=== PATIENT | female | born 1990 | race Caucasian/White ===

== ENCOUNTER → 2019-08-10 17:01 | Outpatient (CLI) | payer MEDICAID, SELFPAY ==
[2019-08-10 09:46] VITALS: BMI 33.9
[2019-08-15 15:37] LABS: HPV Reflexed? NOT INDICATED
== END ==
PROVIDERS: Referring Provider Nurse Practitioner Women's Health; Visit Provider Nurse Practitioner Women's Health
DX: Z12.4 Encounter for screening for malignant neoplasm of cervix (principal)
CPT/HCPCS: 88175; G0145

== ENCOUNTER 2019-12-30 18:06 | Emergency (ER) | payer MEDICAID, SELFPAY ==
[2019-08-10 09:46] VITALS: BMI 33.9
[2019-12-30 18:09] VITALS: BP 132/98; PULSE 109; RESP 16; TEMP 36.6; O2SAT 99; BMI 32.3
--- NOTE | 2019-12-30 18:42 | NURSING ---
per dr vail he does not feel patient is actively suicidal and is not needing a sitter at this time
--- NOTE | 2019-12-30 18:44 | ED.DCSUM_ITS ---
History of Present Illness Chief Complaint: Suicidal Informant: Patient, - - police Onset: Today Context: Sudden Onset Conflict: - - see below Timing: Continuous Current Severity: Mild Maximum Severity: Severe Worsened by: Situational factors Associated Symptoms: Suicidal Thoughts. Negative for: Threatening, Confusion, Paranoia, Visual Hallucinations, Auditory Hallucinations Specific plan (suicidal thought): none; denies suicidality at this time Narrative: Patient states she was having a disagreement with her boyfriend yesterday. Today they were trying to work things out by taking a break from each other. She lives with him and his family. She was going to take a bag of her stuff and live somewhere else for couple days. However, the boyfriend's brother and his significant other show up to help her remove all of her stuff out, which surprised her and created more tension and anxiety. Arguments ensued. As a result, she threatened suicide at one point, threatened to shoot herself, and 1 so far as to grab a shotgun which her boyfriend and his brother then took from her. They called the police, who then brought her here under pink slip. Patient states this was all misunderstanding, she regrets doing that, she has had suicidal thoughts in the past and sees a therapist as well as counselor separately. She is on Effexor for depression and anxiety. She denies any drug use, alcohol use today. She denies any recent illness. She denies being warren cidal. - Past Medical History (1) Anxiety and depression Status: Chronic Past Medical History - Allergies and Home Meds Allergies/Adverse Reactions: Allergies No Known Allergies Allergy (Verified 12/30/19 18:12) Primary Care Physician: [facility] Doctor,Out of [NON-STAFF] - Lives: Spouse/ Significant Other Smoking Status: Never smoker Review of Systems General: Denies: Chills, Fever, Sweats Eyes: Denies: Visual changes - bilaterally, Diplopia ENT: Denies: Rhinorrhea, Sore throat Cardiovascular: Denies: Chest pain, Palpitations Respiratory: Denies: Dyspnea, Cough, Dyspnea on exertion Gastrointestinal: Denies: Abdominal pain, Nausea, Vomiting, Diarrhea, Melena, Hematochezia Genitourinary: Denies: Dysuria, Hematuria, Frequency Musculoskeletal: Denies: Back pain, Extremity Pain Skin: Denies: Rash, Wounds Neurological: Denies: Headache, Weakness, Numbness Psych: Reports: Anxiety, Suicidal thoughts. Denies: Suicidal ideations Physical Exam Vital Signs/Narrative: Vital Signs Temp Pulse Resp BP Pulse Ox 12/30/19 18:09 97.9 F 109 H 16 132/98 H 99 Inital Vital Signs reviewed: Yes General: Well nourished, Well developed, - - nad Head: Normocephalic, Atraumatic Eyes: Perrl, EOMI ENT: Moist mucous membranes, No rhinorrhea Neck: Supple, Nontender Cardiovascular: Regular rate, Regular rhythm, No murmurs Respiratory: No distress, CTA bilaterally, Chest nontender Abdomen: Soft, Nontender, Nondistended, Normal bowel sounds Back: Nontender, Normal Inspection Extremities: Nontender, No Edema Skin: Normal color, No rash Neurological: Alert, Oriented x3, Cranial nerves II-XII grossly intact, Normal Strength, Normal Sensation Psych: Normal Speech Pattern, Logical sequential goal directed thoughts, No suicidal or homicidal ideation, Normal Stable Appropriate Affect, Good Insight, Normal Appearance, Limited Judgement. Negative for: Pressured Speech, Poverty of Speech, Flight of Ideas, Incoherent thoughts, Paranoid Ideation Diagnostic/Tx/Re-eval Laboratory Tests 12/30/19 Range/Units 18:33 Urine Opiates Screen NEGATIVE (< 300 ng/mL) Urine Methadone Screen NEGATIVE (< 300 ng/mL) Ur Barbiturates Screen NEGATIVE (< 200 ng/mL) Ur Phencyclidine Scrn NEGATIVE (< 25 ng/mL) Ur Amphetamines Screen NEGATIVE (<1000 ng/mL) U Methamphetamin-MDMA NEGATIVE (< 500 ng/mL) U Benzodiazepines Scrn NEGATIVE (< 200 ng/mL) Urine Cocaine Screen NEGATIVE (< 300 ng/mL) U Cannabinoids Screen NEGATIVE (< 50 ng/mL) Ur Drug Screen Comment Patient does not appear intoxicated and is conversive in full sentences. Urine drug screen was sent. She is medically cleared. Requested that crisis help to evaluate, which they did. They agree with me that the patient can follow-up and be discharged with a safety plan. The patient was able to come up with a plan for where she is going to go and what she is going to do if she is discharged here, she plans on having her boyfriend pick her up so she can get her stuff and go stay with her family. She states she is on good terms with her boyfriend at this time. I and parks and recreation worker think that is reasonable. Safety plan discussed with patient and she contracts for safety. ED Disposition - Plan for ED Patient: Disposition: Home or Assisted Living Diagnosis: Acute reaction to situational stress, Suicidal thoughts Instructions: ED Stress React, ED Depression Referrals: [facility],Out of [NON-STAFF] - (Your counselor, after the weekend)
--- NOTE | 2019-12-30 18:45 | ED.RN ---
CALLED CRISIS TO SEE THIS PT
--- NOTE | 2019-12-30 19:03 | ED.RN ---
MARIBEL CALLED BACK, CALL GIVEN TO KRISHNA
[2019-12-30 19:11] VITALS: RESP 14
[2019-12-30 19:13] LABS: Amphetamine Urine VISTA NEGATIVE (<1000 ng/mL); Barbiturate Urine VISTA NEGATIVE (< 200 ng/mL); Benzodiazepine Urine VISTA NEGATIVE (< 200 ng/mL); Cocaine Urine VISTA NEGATIVE (< 300 ng/mL); Ecstacy Urine VISTA NEGATIVE (< 500 ng/mL); Methadone Urine VISTA NEGATIVE (< 300 ng/mL); PCP Urine VISTA NEGATIVE (< 25 ng/mL); THC Urine VISTA NEGATIVE (< 50 ng/mL); Vista UDS pH Range 7
[2019-12-30 20:01] VITALS: RESP 15
[2019-12-30 20:37] VITALS: RESP 16
== END 2019-12-30 20:38 | disposition home or self-care (01) ==
PROVIDERS: Emergency Provider Emergency Medicine
DX: F43.0 Acute stress reaction (principal); R45.851 Suicidal ideations; F32.9 Major depressive disorder, single episode, unspecified; F41.9 Anxiety disorder, unspecified
CPT/HCPCS: 80307; 99283

== ENCOUNTER → 2020-12-08 | Outpatient (CLI) | payer MEDICAID, SELFPAY ==
[2020-12-08 08:55] VITALS: BMI 32.9
[2020-12-09 20:07] LABS: Chlamydia By Nucleic Acid AMP Negative (Negative)
[2020-12-10 13:34] LABS: Gonococcus By Nucleic Acid AMP Negative (Negative)
== END | disposition home or self-care (01) ==
LOC: LABSPEC 12:39
PROVIDERS: Referring Provider Nurse Practitioner Women's Health; Visit Provider Nurse Practitioner Women's Health
DX: Z11.3 Encounter for screening for infections with a predominantly sexual mode of transmission (principal)
CPT/HCPCS: 87491; 87591